=== PATIENT | female | born 1995 | race Two or more races ===

== ENCOUNTER 2023-03-19 17:35 | Emergency (ER) | payer BC ==
[2023-03-19 17:54] VITALS: BP 110/68; PULSE 78; RESP 18; TEMP 97.8; BMI 35.5
[2023-03-19] MEDS ORDERED: IBUPROFEN 400 MG TABLET (FP) PO ONE ×2 (18:21→18:30)
== END 2023-03-19 18:55 | disposition home or self-care (01) ==
LOC: FER 17:35
DX: R51.9 Headache, unspecified (principal); R11.0 Nausea; W01.0XXA Fall on same level from slipping, tripping and stumbling without subsequent striking against object, initial encounter
CPT/HCPCS: 99282-25